=== PATIENT | female | born 1940 | race Caucasian/White ===

== ENCOUNTER 2017-12-01 18:29 | Emergency (ER) | payer MEDICARE, MEDICAID ==
[~2017-12-01] VITALS: Ht 175.3 cm; Wt 95.3 kg
--- OUTSIDE RECORDS SUMMARY | 2017-12-01 18:35 | XMS REPORT | CCD ---
Author Author Angelina Chun Organization Angelina Chun MD, [facility] Address [facility] [place] [address] Phone Care Team Providers Care Svp Programmatic Tv Name Role Phone PP Unavailable CCM Unavailable Summary Purpose Interface Exchange Insurance Providers Payer name Policy type / Coverage type Covered green party ID Effective Begin Date Effective End Date WPS Medicare Part B Medicare Part B [id number] 2017 Unknown [employer] Medicare Part B [id number] 2017 Unknown [facility] Medicare Part B [id number] 2017 Unknown Family history Brother Diagnosis Age At Onset Depression Unknown Alcoholism Unknown Hypertension Unknown Mother Diagnosis Age At Onset Arthritis Unknown Hyperlipidemia Unknown Depression Unknown Hypertension Unknown Father Diagnosis Age At Onset Hypertension Unknown Social History Social History Element Codes Description Effective Dates Marital status Unknown Izaiah 08/28/2017 Number of children Unknown 2 adopted 01/01/2017 Employment Unknown Retired 01/01/[address]: 649591927 Never smoker 01/01/[address]: 503803453 Never drinks alcohol 01/01/2017 Allergies, Adverse Reactions, Alerts Allergies, Adverse Reactions, Alerts data not found Past Medical History Illness Codes Condition Status Onset Date Resolved Date Alzheimer's disease with late onset ICD-9: 331.0 ICD-10: G30.1 Active 01/01/2017 Unknown Mixed hyperlipidemia ICD-9: 272.2 ICD-10: E78.2 Active 01/01/2017 Unknown Other allergic rhinitis ICD-9: 477.8 ICD-10: J30.89 Active 01/01/2017 Unknown Problems Condition Codes Effective Dates Condition Status Alzheimer's disease with late onset ICD-9: 331.0 ICD-10: G30.1 01/01/2017 Active Mixed hyperlipidemia ICD-9: 272.2 ICD-10: E78.2 01/01/2017 Active Other allergic rhinitis ICD-9: 477.8 ICD-10: J30.89 01/01/2017 Active Medications Medication Codes Instructions Start Date Stop Date Status Fill Instructions Depakote 250 mg tablet,delayed release RxNorm: 8333406 1 Tablet(s) PO QPM 11/06/2017 04/04/2018 Active simvastatin 20 mg tablet RxNorm: 877624 1 Tablet(s) PO daily 03/28/2018 Active cyanocobalamin (vit B-12) 1,000 mcg/mL injection solution RxNorm: 138241 1 Milliliter(s) Inj monthly 08/29/201708/23 Active vitamin G05-[id number] B1 100 mg-1 mg/mL intramuscular solution RxNorm: 753277 1 IM monthly 08/28/2017 08/29/2017 Inactive Depakote 250 mg tablet,delayed release RxNorm: 1355610 1 Tablet(s) PO QPM 06/04/2017 10/01/2017 Inactive memantine 10 mg tablet RxNorm: 309515 1 Tablet(s) PO BID 201604/26/2018 Active this replaces the 5mg dose simvastatin 20 mg tablet RxNorm: 172840 1 Tablet(s) PO daily 08/26/2017 Inactive Ativan 0.5 mg tablet RxNorm: 159735 1 Tablet(s) PO 45 minutes prior to MRI. May repeat x1 immediately before procedure if needed. 02/13/2017 No Stop Date Active donepezil 10 mg tablet RxNorm: 822368 1 Tablet(s) PO daily 12/26/2017 Active Depakote 250 mg tablet,delayed release RxNorm: 6298349 1 Tablet(s) PO QPM 01/01/2017 04/30/2017 Inactive memantine 5 mg tablet RxNorm: 348533 1 Tablet(s) PO BID 201605/01/2017 Inactive melatonin 3 mg tablet RxNorm: 471675 1 Tablet(s) PO QHS No Start Date Active Claritin 10 mg tablet RxNorm: 714322 1 Tablet(s) PO daily No Start Date Active memantine 5 mg tablet RxNorm: 529854 1 Tablet(s) PO BID No Start Date 12/31/2016 Inactive donepezil 5 mg tablet RxNorm: 318507 1 Tablet(s) PO daily No Start Date 12/31/2016 Inactive simvastatin 20 mg tablet RxNorm: 867695 1 Tablet(s) PO daily No Start Date 04/28/2017 Inactive cyanocobalamin (vit B-12) 1,000 mcg/mL injection solution RxNorm: 165871 1 Milliliter(s) Inj monthly No Start Date Inactive vitamin L29-bpzgunc B1 100 mg-1 mg/mL intramuscular solution RxNorm: 372887 1 IM monthly No Start Date 08/27/2017 Inactive Ativan 0.5 mg tablet RxNorm: 473833 1 Tablet(s) PO 45 minutes prior to MRI. May repeat x1 immediately before procedure if needed. No Start Date 02/12/2017 Inactive Medication Administered No Medication Administered data Immunizations No Immunization data Assessments Condition Codes Effective Dates Mixed hyperlipidemia ICD-10: E78.2 ICD-9: 272.2 08/28/2017 Alzheimer's disease with late onset ICD-10: G30.1 ICD-9: 331.0 08/28/2017 Other allergic rhinitis ICD-10: J30.89 ICD-9: 477.8 01/01/2017 Reason For Visit Reason For Visit Effective Dates Notes memory loss 08/28/2017 memory loss 05/02/2017 insomnia 02/05/2017 insomnia 01/01/2017 Results No Results data Review of Systems System Result Effective Dates Constitutional No recent illness 2016 Constitutional No chills 08/28/2017 Constitutional fatigue 08/28/2017 Constitutional No fever 08/28/2017 Constitutional No insomnia 08/28/2017 Constitutional malaise 08/28/2017 Eyes No vision change 08/28/2017 Ears/Nose/Throat/Neck No dizziness 2016 Ears/Nose/Throat/Neck No dysphagia 2016 Ears/Nose/Throat/Neck No headache 2016 Ears/Nose/Throat/Neck No hearing loss Ears/Nose/Throat/Neck No nasal allergies 08/28/2017 Ears/Nose/Throat/Neck No sore throat Cardiovascular No chest pain/pressure Cardiovascular dyspnea 08/28/2017 Cardiovascular No edema 08/28/2017 Cardiovascular exercise intolerance 08/28 Cardiovascular fatigue 08/28/2017 Respiratory No chest tightness 2016 Respiratory No cough 08/28/2017 Respiratory No dyspnea 08/28/2017 Respiratory No pedal edema 08/28/2017 Gastrointestinal No abdominal pain 2016 Gastrointestinal No constipation 2016 Gastrointestinal No diarrhea 08/28/2017 Gastrointestinal No gastroesophageal reflux 08/28/2017 Genitourinary/Nephrology No dysuria 08/28 Genitourinary/Nephrology No nocturia Genitourinary/Nephrology No urinary incontinence 08/28/2017 Musculoskeletal No stiffness 08/28/2017 Musculoskeletal No swelling 08/28/2017 Musculoskeletal No muscle weakness 2016 Musculoskeletal No myalgias 08/28/2017 Dermatologic No rash 08/28/2017 Dermatologic No sores 08/28/2017 Neurologic No dizziness 08/28/2017 Neurologic No headache 08/28/2017 Neurologic memory loss 08/28/2017 Neurologic No neck pain 08/28/2017 Neurologic No syncope 08/28/2017 Psychiatric No anxiety 08/28/2017 Psychiatric No depression 08/28/2017 Constitutional No recent illness 2016 Constitutional No chills 05/02/2017 Constitutional fatigue 05/02/2017 Constitutional No fever 05/02/2017 Constitutional No insomnia 05/02/2017 Constitutional malaise 05/02/2017 Eyes No vision change 05/02/2017 Ears/Nose/Throat/Neck No dizziness 2016 Ears/Nose/Throat/Neck No dysphagia 2016 Ears/Nose/Throat/Neck No headache 2016 Ears/Nose/Throat/Neck No hearing loss Ears/Nose/Throat/Neck No nasal allergies 05/02/2017 Ears/Nose/Throat/Neck No sore throat Cardiovascular No chest pain/pressure Cardiovascular dyspnea 05/02/2017 Cardiovascular No edema 05/02/2017 Cardiovascular exercise intolerance 05/02 Cardiovascular fatigue 05/02/2017 Respiratory No chest tightness 2016 Respiratory No cough 05/02/2017 Respiratory No dyspnea 05/02/2017 Respiratory No pedal edema 05/02/2017 Gastrointestinal No abdominal pain 2016 Gastrointestinal No constipation 2016 Gastrointestinal No diarrhea 05/02/2017 Gastrointestinal No gastroesophageal reflux 05/02/2017 Genitourinary/Nephrology No dysuria 05/02 Genitourinary/Nephrology No nocturia Genitourinary/Nephrology No urinary incontinence 05/02/2017 Musculoskeletal No stiffness 05/02/2017 Musculoskeletal No swelling 05/02/2017 Musculoskeletal No muscle weakness 2016 Musculoskeletal No myalgias 05/02/2017 Dermatologic No rash 05/02/2017 Dermatologic No sores 05/02/2017 Neurologic No dizziness 05/02/2017 Neurologic No headache 05/02/2017 Neurologic memory loss 05/02/2017 Neurologic No neck pain 05/02/2017 Neurologic No syncope 05/02/2017 Psychiatric No anxiety 05/02/2017 Psychiatric No depression 05/02/2017 Constitutional No recent illness 2016 Constitutional No chills 02/05/2017 Constitutional fatigue 02/05/2017 Constitutional No fever 02/05/2017 Constitutional No insomnia 02/05/2017 Constitutional malaise 02/05/2017 Eyes No vision change 02/05/2017 Ears/Nose/Throat/Neck No dizziness 2016 Ears/Nose/Throat/Neck No dysphagia 2016 Ears/Nose/Throat/Neck No headache 2016 Ears/Nose/Throat/Neck No hearing loss Ears/Nose/Throat/Neck No nasal allergies 02/05/2017 Ears/Nose/Throat/Neck No sore throat Cardiovascular No chest pain/pressure Cardiovascular dyspnea 02/05/2017 Cardiovascular No edema 02/05/2017 Cardiovascular exercise intolerance 02/05 Cardiovascular fatigue 02/05/2017 Respiratory No chest tightness 2016 Respiratory No cough 02/05/2017 Respiratory No dyspnea 02/05/2017 Respiratory No pedal edema 02/05/2017 Gastrointestinal No abdominal pain 2016 Gastrointestinal No constipation 2016 Gastrointestinal No diarrhea 02/05/2017 Gastrointestinal No gastroesophageal reflux 02/05/2017 Genitourinary/Nephrology No dysuria 02/05 Genitourinary/Nephrology No nocturia Genitourinary/Nephrology No urinary incontinence 02/05/2017 Musculoskeletal No stiffness 02/05/2017 Musculoskeletal No swelling 02/05/2017 Musculoskeletal No muscle weakness 2016 Musculoskeletal No myalgias 02/05/2017 Dermatologic No rash 02/05/2017 Dermatologic No sores 02/05/2017 Neurologic No dizziness 02/05/2017 Neurologic No headache 02/05/2017 Neurologic memory loss 02/05/2017 Neurologic No neck pain 02/05/2017 Neurologic No syncope 02/05/2017 Psychiatric No anxiety 02/05/2017 Psychiatric No depression 02/05/2017 Constitutional No recent illness 2016 Constitutional No chills 01/01/2017 Constitutional fatigue 01/01/2017 Constitutional No fever 01/01/2017 Constitutional No insomnia 01/01/2017 Constitutional malaise 01/01/2017 Eyes No vision change 01/01/2017 Ears/Nose/Throat/Neck No dizziness 2016 Ears/Nose/Throat/Neck No dysphagia 2016 Ears/Nose/Throat/Neck No headache 2016 Ears/Nose/Throat/Neck No hearing loss Ears/Nose/Throat/Neck No nasal allergies 01/01/2017 Ears/Nose/Throat/Neck No sore throat Cardiovascular No chest pain/pressure Cardiovascular dyspnea 01/01/2017 Cardiovascular No edema 01/01/2017 Cardiovascular exercise intolerance 01/01 Cardiovascular fatigue 01/01/2017 Respiratory No chest tightness 2016 Respiratory No cough 01/01/2017 Respiratory No dyspnea 01/01/2017 Respiratory No pedal edema 01/01/2017 Gastrointestinal No abdominal pain 2016 Gastrointestinal No constipation 2016 Gastrointestinal No diarrhea 01/01/2017 Gastrointestinal No gastroesophageal reflux 01/01/2017 Genitourinary/Nephrology No dysuria 01/01 Genitourinary/Nephrology No nocturia Genitourinary/Nephrology No urinary incontinence 01/01/2017 Musculoskeletal No stiffness 01/01/2017 Musculoskeletal No swelling 01/01/2017 Musculoskeletal No muscle weakness 2016 Musculoskeletal No myalgias 01/01/2017 Dermatologic No rash 01/01/2017 Dermatologic No sores 01/01/2017 Neurologic No dizziness 01/01/2017 Neurologic No headache 01/01/2017 Neurologic No neck pain 01/01/2017 Neurologic No syncope 01/01/2017 Psychiatric No anxiety 01/01/2017 Psychiatric No depression 01/01/2017 Neurologic memory loss 01/01/2017 Physical Exam Exam Name System Name Item Name Status Result Effective Dates Notes Full Exam - General 1994 Constitutional general appearance Development: well developed 08/28/2017 None Full Exam - General 1994 Constitutional general appearance Development: appears stated age 1108/28/2017 None Full Exam - General 1994 Constitutional general appearance Hygiene/Attention to Grooming: good hygiene 08/28/2017 None Full Exam - General 1994 Eyes conjunctiva /eyelids Overall: conjunctiva clear 08/28/2017 None Full Exam - General 1994 Eyes conjunctiva /eyelids Overall: cornea clear 08/28/2017 None Full Exam - General 1994 Eyes conjunctiva /eyelids Overall: eyelids normal 08/28/2017 None Full Exam - General 1994 Eyes pupils and irises Overall: pupils equal, round, reactive to light and accomodation 08/28/2017 None Full Exam - General 1994 Ears/Nose/Throat otoscopic exam Overall: external auditory canals clear 08/28/2017 None Full Exam - General 1994 Ears/Nose/Throat otoscopic exam Overall: tympanic membranes clear 08/28/2017 None Full Exam - General 1994 Ears/Nose/Throat lips/teeth/gingiva Overall: benign lips 08/28/2017 None Full Exam - General 1994 Ears/Nose/Throat lips/teeth/gingiva Overall: normal dentition 08/28/2017 None Full Exam - General 1994 Ears/Nose/Throat oral cavity/pharynx/larynx Overall: oral mucosa clear 08/28/2017 None Full Exam - General 1994 Ears/Nose/Throat oral cavity/pharynx/larynx Overall: oropharyngeal mucosa clear 08/28/2017 None Full Exam - General 1994 Ears/Nose/Throat oral cavity/pharynx/larynx Overall: hypopharynx benign 08/28/2017 None Full Exam - General 1994 Ears/Nose/Throat oral cavity/pharynx/larynx Overall: no masses 08/28/2017 None Full Exam - General 1994 Respiratory auscultation Overall: breath sounds clear bilaterally 08/28/2017 None Full Exam - General 1994 Respiratory respiratory effort/rhythm Overall: no retractions 08/28/2017 None Full Exam - General 1994 Respiratory respiratory effort/rhythm Overall: normal rate 08/28/2017 None Full Exam - General 1994 Cardiovascular extremities Overall: no clubbing 08/28/2017 None Full Exam - General 1994 Cardiovascular auscultation of heart Overall: regular rate 08/28/2017 None Full Exam - General 1994 Cardiovascular auscultation of heart Overall: normal heart sounds 08/28/2017 None Full Exam - General 1994 Abdomen abdominal exam Overall: no tenderness 08/28/2017 None Full Exam - General 1994 Abdomen abdominal exam Overall: normal bowel sounds 08/28/2017 None Full Exam - General 1994 Musculoskeletal spine, ribs and pelvis Overall: good posture 08/28/2017 None Full Exam - General 1994 Musculoskeletal head and neck Overall: head atraumatic 08/28/2017 None Full Exam - General 1994 Musculoskeletal head and neck Overall: cervical spine benign 08/28/2017 None Full Exam - General 1994 Psychiatric orientation/consciousness Oriented to person: yes 08/28/2017 None Full Exam - General 1994 Psychiatric orientation/consciousness Oriented to person: no 08/28/2017 None Full Exam - General 1994 Psychiatric orientation/consciousness Oriented to place: no 08/28/2017 None Full Exam - General 1994 Psychiatric orientation/consciousness Oriented to time: no 08/28/2017 None Full Exam - General 1994 Psychiatric behavior/psychomotor activity Behavior: agitation/restlessness 08/28/2017 None Full Exam - General 1994 Psychiatric mood and affect Overall: normal mood and affect 08/28/2017 None Full Exam - General 1994 Constitutional general appearance Development: well developed 05/02/2017 None Full Exam - General 1994 Constitutional general appearance Development: appears stated age 0705/02/2017 None Full Exam - General 1994 Constitutional general appearance Hygiene/Attention to Grooming: good hygiene 05/02/2017 None Full Exam - General 1994 Eyes conjunctiva /eyelids Overall: conjunctiva clear 05/02/2017 None Full Exam - General 1994 Eyes conjunctiva /eyelids Overall: cornea clear 05/02/2017 None Full Exam - General 1994 Eyes conjunctiva /eyelids Overall: eyelids normal 05/02/2017 None Full Exam - General 1994 Eyes pupils and irises Overall: pupils equal, round, reactive to light and accomodation 05/02/2017 None Full Exam - General 1994 Ears/Nose/Throat otoscopic exam Overall: external auditory canals clear 05/02/2017 None Full Exam - General 1994 Ears/Nose/Throat otoscopic exam Overall: tympanic membranes clear 05/02/2017 None Full Exam - General 1994 Ears/Nose/Throat lips/teeth/gingiva Overall: benign lips 05/02/2017 None Full Exam - General 1994 Ears/Nose/Throat lips/teeth/gingiva Overall: normal dentition 05/02/2017 None Full Exam - General 1994 Ears/Nose/Throat oral cavity/pharynx/larynx Overall: oral mucosa clear 05/02/2017 None Full Exam - General 1994 Ears/Nose/Throat oral cavity/pharynx/larynx Overall: oropharyngeal mucosa clear 05/02/2017 None Full Exam - General 1994 Ears/Nose/Throat oral cavity/pharynx/larynx Overall: hypopharynx benign 05/02/2017 None Full Exam - General 1994 Ears/Nose/Throat oral cavity/pharynx/larynx Overall: no masses 05/02/2017 None Full Exam - General 1994 Respiratory auscultation Overall: breath sounds clear bilaterally 05/02/2017 None Full Exam - General 1994 Respiratory respiratory effort/rhythm Overall: no retractions 05/02/2017 None Full Exam - General 1994 Respiratory respiratory effort/rhythm Overall: normal rate 05/02/2017 None Full Exam - General 1994 Cardiovascular extremities Overall: no clubbing 05/02/2017 None Full Exam - General 1994 Cardiovascular auscultation of heart Overall: regular rate 05/02/2017 None Full Exam - General 1994 Cardiovascular auscultation of heart Overall: normal heart sounds 05/02/2017 None Full Exam - General 1994 Abdomen abdominal exam Overall: no tenderness 05/02/2017 None Full Exam - General 1994 Abdomen abdominal exam Overall: normal bowel sounds 05/02/2017 None Full Exam - General 1994 Musculoskeletal spine, ribs and pelvis Overall: good posture 05/02/2017 None Full Exam - General 1994 Musculoskeletal head and neck Overall: head atraumatic 05/02/2017 None Full Exam - General 1994 Musculoskeletal head and neck Overall: cervical spine benign 05/02/2017 None Full Exam - General 1994 Psychiatric orientation/consciousness Oriented to person: yes 05/02/2017 None Full Exam - General 1994 Psychiatric orientation/consciousness Oriented to person: no 05/02/2017 None Full Exam - General 1994 Psychiatric orientation/consciousness Oriented to place: no 05/02/2017 None Full Exam - General 1994 Psychiatric orientation/consciousness Oriented to time: no 05/02/2017 None Full Exam - General 1994 Psychiatric behavior/psychomotor activity Behavior: agitation/restlessness 05/02/2017 None Full Exam - General 1994 Psychiatric mood and affect Overall: normal mood and affect 05/02/2017 None Full Exam - General 1994 Constitutional general appearance Development: well developed 02/05/2017 None Full Exam - General 1994 Constitutional general appearance Development: appears stated age 0402/05/2017 None Full Exam - General 1994 Constitutional general appearance Hygiene/Attention to Grooming: good hygiene 02/05/2017 None Full Exam - General 1994 Eyes conjunctiva /eyelids Overall: conjunctiva clear 02/05/2017 None Full Exam - General 1994 Eyes conjunctiva /eyelids Overall: cornea clear 02/05/2017 None Full Exam - General 1994 Eyes conjunctiva /eyelids Overall: eyelids normal 02/05/2017 None Full Exam - General 1994 Eyes pupils and irises Overall: pupils equal, round, reactive to light and accomodation 02/05/2017 None Full Exam - General 1994 Ears/Nose/Throat otoscopic exam Overall: external auditory canals clear 02/05/2017 None Full Exam - General 1994 Ears/Nose/Throat otoscopic exam Overall: tympanic membranes clear 02/05/2017 None Full Exam - General 1994 Ears/Nose/Throat lips/teeth/gingiva Overall: benign lips 02/05/2017 None Full Exam - General 1994 Ears/Nose/Throat lips/teeth/gingiva Overall: normal dentition 02/05/2017 None Full Exam - General 1994 Ears/Nose/Throat oral cavity/pharynx/larynx Overall: oral mucosa clear 02/05/2017 None Full Exam - General 1994 Ears/Nose/Throat oral cavity/pharynx/larynx Overall: oropharyngeal mucosa clear 02/05/2017 None Full Exam - General 1994 Ears/Nose/Throat oral cavity/pharynx/larynx Overall: hypopharynx benign 02/05/2017 None Full Exam - General 1994 Ears/Nose/Throat oral cavity/pharynx/larynx Overall: no masses 02/05/2017 None Full Exam - General 1994 Respiratory auscultation Overall: breath sounds clear bilaterally 02/05/2017 None Full Exam - General 1994 Respiratory respiratory effort/rhythm Overall: no retractions 02/05/2017 None Full Exam - General 1994 Respiratory respiratory effort/rhythm Overall: normal rate 02/05/2017 None Full Exam - General 1994 Cardiovascular extremities Overall: no clubbing 02/05/2017 None Full Exam - General 1994 Cardiovascular auscultation of heart Overall: regular rate 02/05/2017 None Full Exam - General 1994 Cardiovascular auscultation of heart Overall: normal heart sounds 02/05/2017 None Full Exam - General 1994 Abdomen abdominal exam Overall: no tenderness 02/05/2017 None Full Exam - General 1994 Abdomen abdominal exam Overall: normal bowel sounds 02/05/2017 None Full Exam - General 1994 Musculoskeletal spine, ribs and pelvis Overall: good posture 02/05/2017 None Full Exam - General 1994 Musculoskeletal head and neck Overall: head atraumatic 02/05/2017 None Full Exam - General 1994 Musculoskeletal head and neck Overall: cervical spine benign 02/05/2017 None Full Exam - General 1994 Psychiatric orientation/consciousness Oriented to person: yes 02/05/2017 None Full Exam - General 1994 Psychiatric orientation/consciousness Oriented to person: no 02/05/2017 None Full Exam - General 1994 Psychiatric orientation/consciousness Oriented to place: no 02/05/2017 None Full Exam - General 1994 Psychiatric orientation/consciousness Oriented to time: no 02/05/2017 None Full Exam - General 1994 Psychiatric behavior/psychomotor activity Behavior: agitation/restlessness 02/05/2017 None Full Exam - General 1994 Psychiatric mood and affect Overall: normal mood and affect 02/05/2017 None Full Exam - General 1994 Constitutional general appearance Development: well developed 01/01/2017 None Full Exam - General 1994 Constitutional general appearance Development: appears stated age 0301/01/2017 None Full Exam - General 1994 Constitutional general appearance Hygiene/Attention to Grooming: good hygiene 01/01/2017 None Full Exam - General 1994 Eyes conjunctiva /eyelids Overall: conjunctiva clear 01/01/2017 None Full Exam - General 1994 Eyes conjunctiva /eyelids Overall: cornea clear 01/01/2017 None Full Exam - General 1994 Eyes conjunctiva /eyelids Overall: eyelids normal 01/01/2017 None Full Exam - General 1994 Eyes pupils and irises Overall: pupils equal, round, reactive to light and accomodation 01/01/2017 None Full Exam - General 1994 Ears/Nose/Throat otoscopic exam Overall: external auditory canals clear 01/01/2017 None Full Exam - General 1994 Ears/Nose/Throat otoscopic exam Overall: tympanic membranes clear 01/01/2017 None Full Exam - General 1994 Ears/Nose/Throat lips/teeth/gingiva Overall: benign lips 01/01/2017 None Full Exam - General 1994 Ears/Nose/Throat lips/teeth/gingiva Overall: normal dentition 01/01/2017 None Full Exam - General 1994 Ears/Nose/Throat oral cavity/pharynx/larynx Overall: oral mucosa clear 01/01/2017 None Full Exam - General 1994 Ears/Nose/Throat oral cavity/pharynx/larynx Overall: oropharyngeal mucosa clear 01/01/2017 None Full Exam - General 1994 Ears/Nose/Throat oral cavity/pharynx/larynx Overall: hypopharynx benign 01/01/2017 None Full Exam - General 1994 Ears/Nose/Throat oral cavity/pharynx/larynx Overall: no masses 01/01/2017 None Full Exam - General 1994 Respiratory auscultation Overall: breath sounds clear bilaterally 01/01/2017 None Full Exam - General 1994 Respiratory respiratory effort/rhythm Overall: no retractions 01/01/2017 None Full Exam - General 1994 Respiratory respiratory effort/rhythm Overall: normal rate 01/01/2017 None Full Exam - General 1994 Cardiovascular extremities Overall: no clubbing 01/01/2017 None Full Exam - General 1994 Cardiovascular auscultation of heart Overall: regular rate 01/01/2017 None Full Exam - General 1994 Cardiovascular auscultation of heart Overall: normal heart sounds 01/01/2017 None Full Exam - General 1994 Abdomen abdominal exam Overall: no tenderness 01/01/2017 None Full Exam - General 1994 Abdomen abdominal exam Overall: normal bowel sounds 01/01/2017 None Full Exam - General 1994 Lymphatic neck nodes Overall: anterior cervical chain benign 01/01/2017 None Full Exam - General 1994 Lymphatic neck nodes Overall: posterior cervical chain benign 01/01/2017 None Full Exam - General 1994 Musculoskeletal spine, ribs and pelvis Overall: spine benign 01/01/2017 None Full Exam - General 1994 Musculoskeletal spine, ribs and pelvis Overall: sacroiliac joint benign 01/01/2017 None Full Exam - General 1994 Musculoskeletal spine, ribs and pelvis Overall: good posture 01/01/2017 None Full Exam - General 1994 Musculoskeletal head and neck Overall: head atraumatic 01/01/2017 None Full Exam - General 1994 Musculoskeletal head and neck Overall: cervical spine benign 01/01/2017 None Full Exam - General 1994 Integument inspection of skin Overall: few scattered moles, no gross abnormalities 01/01/2017 None Full Exam - General 1994 Neurologic deep tendon reflexes Overall: deep tendon reflexes intact 01/01/2017 None Full Exam - General 1994 Neurologic cranial nerves Overall: crainial nerves 2 - 12 grossly intact 01/01/2017 None Full Exam - General 1994 Psychiatric mood and affect Overall: normal mood and affect 01/01/2017 None Full Exam - General 1994 Psychiatric orientation/consciousness Oriented to person: no 01/01/2017 None Full Exam - General 1994 Psychiatric orientation/consciousness Oriented to person: yes 01/01/2017 None Full Exam - General 1994 Psychiatric orientation/consciousness Oriented to place: no 01/01/2017 None Full Exam - General 1994 Psychiatric orientation/consciousness Oriented to time: no 01/01/2017 None Full Exam - General 1994 Psychiatric behavior/psychomotor activity Behavior: agitation/restlessness 01/01/2017 None Procedures Procedure Codes Date BIOPSY OF THYROID CPT- 4: 22816 Unknown BX BREAST PERCUT W/O IMAGE CPT-4: 20311 Unknown Vital Signs Date Vital 08/28/2017 Blood Pressure 1: 122/78 Code : 8480-6 BMI: 31.6 Code : 05511-9 Heart Rate 1 : 106 bpm Height: 5'8" SpO2: 98% Weight: 211 lbs 05/02/2017 Blood Pressure 1: 140/80 Code : 8480-6 BMI: 30.7 Code : 39512-5 Heart Rate 1 : 104 bpm Height: 5'8" SpO2: 97% Weight: 205 lbs 02/05/2017 Blood Pressure 1: 142/70 Code : 8480-6 BMI: 29.1 Code : 31283-2 Heart Rate 1 : 103 bpm Height: 5'8" SpO2: 96% Weight: 194 lbs 01/01/2017 Blood Pressure 1: 120/68 Code : 8480-6 BMI: 29.4 Code : 87553-8 Heart Rate 1 : 93 bpm Height: 5'8" SpO2: 96% Weight: 196 lbs Functional Status No Functional Status data History of Present Illness Symptom Name Status Result Effective Date Notes memory loss Onset and Resolution ongoing 08/28/2017 None memory loss Limitation on Activities moderately limits activities 08/28/2017 None memory loss Onset and Resolution gradual in onset 08/28/2017 None memory loss Onset of Symptom years ago 08/28/2017 None hyperlipidemia Onset and Resolution gradual in onset 08/28/2017 None hyperlipidemia Onset and Resolution ongoing 08/28/2017 None hyperlipidemia Onset of Symptom during adulthood 08/28/2017 None hyperlipidemia Alleviating Factors medication 08/28/2017 None hyperlipidemia Exacerbating Factors diet 08/28/2017 None hyperlipidemia Quality increased LDL 08/28/2017 None hyperlipidemia Significant Medications statin 08/28/2017 None abdominal pain Location in the LLQ 08/28/2017 None abdominal pain Location in the RLQ 08/28/2017 None abdominal pain Quality intermittent 08/28/2017 None abdominal pain Onset and Resolution ongoing 08/28/2017 None abdominal pain Onset of Symptom 2 months ago 08/28/2017 None abdominal pain Pertinent Findings Denies nausea 08/28/2017 None insomnia Quality intermittent 08/28/2017 None insomnia Quality disrupted sleep 08/28/2017 None insomnia Quality early awakening 08/28/2017 None insomnia Onset and Resolution ongoing 08/28/2017 None insomnia Onset of Symptom ~3 months ago 08/28/2017 None abdominal pain Triggers no known associated factors 08/28/2017 None memory loss Onset and Resolution ongoing 05/02/2017 None memory loss Onset of Symptom _ years ago 05/02/2017 None memory loss Limitation on Activities moderately limits activities 05/02/2017 None anxiety Quality agitation 05/02/2017 None anxiety Quality intermittent 05/02/2017 None anxiety Quality worsening 05/02/2017 None anxiety Onset and Resolution ongoing 05/02/2017 None anxiety Onset of Symptom during adulthood 05/02/2017 None anxiety Pertinent Findings Denies dyspnea 05/02/2017 None anxiety Pertinent Findings Denies palpitations 05/02/2017 None insomnia Quality difficulty falling asleep 02/05/2017 None insomnia Quality disrupted sleep 02/05/2017 None insomnia Onset and Resolution ongoing 02/05/2017 None memory loss Onset and Resolution ongoing 02/05/2017 None memory loss Onset of Symptom _ years ago 02/05/2017 None memory loss Limitation on Activities moderately limits activities 02/05/2017 None anxiety Quality agitation 02/05/2017 None anxiety Quality intermittent 02/05/2017 None anxiety Quality worsening 02/05/2017 None anxiety Onset and Resolution ongoing 02/05/2017 None anxiety Onset of Symptom during adulthood 02/05/2017 None dizziness Onset and Resolution sudden in onset 02/05/2017 None dizziness Quality imbalance 02/05/2017 None dizziness Pertinent Findings blurred vision 02/05/2017 None dizziness Pertinent Findings Denies confusion 02/05/2017 None dizziness Pertinent Findings imbalance 02/05/2017 None dizziness Pertinent Findings Denies lightheadedness 02/05/2017 None insomnia Quality difficulty falling asleep 01/01/2017 None insomnia Quality disrupted sleep 01/01/2017 None insomnia Onset and Resolution ongoing 01/01/2017 None memory loss Onset and Resolution ongoing 01/01/2017 None memory loss Onset of Symptom _ years ago 01/01/2017 None memory loss Limitation on Activities moderately limits activities 01/01/2017 None anxiety Quality agitation 01/01/2017 None anxiety Quality intermittent 01/01/2017 None anxiety Quality worsening 01/01/2017 None anxiety Onset and Resolution ongoing 01/01/2017 None anxiety Onset of Symptom during adulthood 01/01/2017 None Advance Directives Advance Directives Present Encounters Encounter Performer Location Codes Date [id number]) [id number] EST. PATIENT, LEVEL IV Diagnosis: Mixed hyperlipidemia[ICD10: E78.2] Diagnosis: Alzheimer's disease with late onset[ICD10: G30.1] Angelina Chun MD, [facility] CPT-4: 58089 08/28/2017 [id number]) [id number] EST. PATIENT, LEVEL IV Diagnosis: Alzheimer's disease with late onset[ICD10: G30.1] Diagnosis: Mixed hyperlipidemia[ICD10: E78.2] [facility] CPT-4: 86195 05/02/2017 [id number]) [id number] EST. PATIENT, LEVEL IV Diagnosis: Mixed hyperlipidemia[ICD10: E78.2] Diagnosis: Alzheimer's disease with late onset[ICD10: G30.1] [facility] CPT-4: 53650 02/05/2017 ([id number]) OFFICE/OUTPATIENT VISIT NEW Diagnosis: Alzheimer's disease with late onset[ICD10: G30.1] Diagnosis: Mixed hyperlipidemia[ICD10: E78.2] Diagnosis: Other allergic rhinitis[ICD10: J30.89] [facility] CPT-4: 99721 01/01/2017 Plan of Care Planned Activity Notes Codes Status Date Appointment: Shiloh Jackson [facility]el[facility] [place] (15 min) Moderate 10/28/2017 Appointment: Angelina Chun WPtel[facility] [place] (15 min) Moderate 08/28/2017 Patient Education: Patient Medication Summary Completed 08/28/2017 Patient Education: Obesity Completed 08/28/2017 Appointment: Angelina Chun WPtel: [facility] [place] (15 min) Moderate 05/02/2017 Patient Education: Patient Medication Summary Completed 05/02/2017 Patient Education: Obesity Completed 05/02/2017 Appointment: Angelina Chun WPtel: [facility] [place] (30 min) Complex 02/05/2017 Patient Education: Patient Medication Summary Completed 02/05/2017 Care Plan: MRI BRAIN STEM W/O DYE Pending 02/05/2017 Appointment: [phone] [facility] New Patient 01/01/2017 Patient Education: Patient Medication Summary Completed 01/01/2017 Appointment: [phone] [facility] New Patient 12/27/2016 Instructions No Instructions
[2017-12-01] MEDS ORDERED: SIMV20TA3 (19:52)
[2017-12-01] MEDS ORDERED: DIVA250T4 (19:52)
[2017-12-01] MEDS ORDERED: ALPR0.254 (19:52)
[2017-12-01 19:53] LABS: BILIRUBIN,URINE NEGATIVE (NEGATIVE); CLARITY,URINE CLEAR; COLOR,URINE YELLOW; GLUCOSE, URINE (UA) NEGATIVE (NEGATIVE); KETONES,URINE NEGATIVE (NEGATIVE); LEUKOCYTE ESTERASE ,URINE 1+ (NEGATIVE); NITRITE,URINE NEGATIVE (NEGATIVE); PH,URINE 5 (5-9); PROTEIN,URINE NEGATIVE (NEGATIVE); UROBILINOGEN,URINE NORMAL (NORMAL)
[2017-12-01] MEDS ORDERED: DONE10TA41 (19:53)
[2017-12-01] MEDS ORDERED: MEMA10TA22 (19:53)
[2017-12-01 20:00] LABS: SQUAMOUS EPITHELIAL CELL,UR 0-2 /HPF; WBC,URINE 0-2 /HPF
[2017-12-01 20:57] LABS: BASOPHILS # (AUTO) 0.1 10^3/uL (0.0-0.1); BASOPHILS % (AUTO) 0 % (0-10); EOSINOPHILS # (AUTO) 0.5 10^3/uL (0.0-0.3); EOSINOPHILS % (AUTO) 4 % (0-10); HEMATOCRIT 34 % (35-52); HEMOGLOBIN 10.6 G/DL (11.5-16.0); LYMPHOCYTES # (AUTO) 3.5 X 10^3 (1.0-4.0); LYMPHOCYTES % (AUTO) 28 % (12-44); MEAN CORPUSCULAR HEMOGLOBIN 23 PG (25-34); MEAN CORPUSCULAR HGB CONC 31 G/DL (32-36); MEAN CORPUSCULAR VOLUME 75 FL (80-99); MEAN PLATELET VOLUME 9.8 FL (7.4-10.4); MONOCYTES # (AUTO) 1.2 X 10^3 (0.0-1.0); MONOCYTES % (AUTO) 10 % (0-12); NEUTROPHILS # (AUTO) 7.1 X 10^3 (1.8-7.8); NEUTROPHILS % (AUTO) 58 % (42-75); PLATELET COUNT 347 10^3/uL (130-400); RED BLOOD COUNT 4.55 10^6/uL (4.35-5.85); RED CELL DISTRIBUTION WIDTH 17.7 % (10.0-14.5); WHITE BLOOD COUNT 12.3 10^3/uL (4.3-11.0)
--- NOTE | 2017-12-01 20:59 | ED Neurological Problem ---
General Chief Complaint: Altered Mental Status Stated Complaint: AMS Nursing Triage Note: reports patient has dementia and has been getting worse since august but woke up last night at 2300 and was really bad and has continued today. Nursing Sepsis Screen: No Definite Risk Source: patient Exam Limitations: no limitations History of Present Illness Date Seen by Provider: Dec 01, 2017 Time Seen by Provider: 20:30 Initial Comments Patient presents to the ER with her daughter and . She lives at home with her . She has a history of dementia being followed by her primary care physician Dr. Chun. The daughter says yesterday evening around 11:00 at night the patient was just a little more confused than normal and did not want to go to sleep and this concerned them that maybe something was going on. She has no focal complaints. She denies dysuria, discharge, fever, vomiting, nausea, pain anywhere, shortness of breath, cough, runny nose, ear pressure or drainage, rash. At baseline the patient is able to feed herself and go to the bathroom but needs help with bathing, all IADLs. She has not had any recent falls nor she had her head struck, syncope nor presyncope. Patient had an MRI a few months ago when they were working of her dementia. The daughter says if we don't find anything infectious going on she would at least like something for sleep. She was started on melatonin recently by the primary care physician but they don't feel that it has helped. She denies any mood issues, tearfulness, loss of interest in hobbies, feeling low or low energy. Allergies and Home Medications Allergies Coded Allergies: Penicillins (Verified Allergy, Unknown, 12/01/17) Home Medications Alprazolam 0.25 Mg Tablet, (Reported) Divalproex Sodium 250 Mg Tablet., (Reported) Donepezil HCl 10 Mg Tablet, (Reported) Memantine HCl 10 Mg Tablet, (Reported) Simvastatin 20 Mg Tablet, (Reported) Constitutional: see HPI (farmer negative review of systems) Past Smilznq-Linjwz-Qqiczt Hx Patient Social History Alcohol Use: Denies Use Recreational Drug Use: No Recent Foreign Travel: No Contact w/Someone Who Travel: No Recent Infectious Disease Expo: No Surgeries History of Surgeries: Yes Surgeries: Breast Respiratory History of Respiratory Disorde: No Cardiovascular History of Cardiac Disorders: Yes Cardiac Disorders: High Cholesterol Neurological History of Neurological Disord: Yes (dementia) Gastrointestinal History of Gastrointestinal Di: No Musculoskeletal History of Musculoskeletal Dis: No Endocrine History of Endocrine Disorders: No HEENT History of HEENT Disorders: No Cancer History of Cancer: No Psychosocial History of Psychiatric Problem: No Physical Exam Vital Signs Vital Signs - First Documented 12/01/17 19:42 Temp 98.2 Pulse 109 Resp 18 B/P (MAP) 124/69 (87) Pulse Ox 97 Capillary Refill : Less Than 3 Seconds General Appearance: WD/WN, no apparent distress HEENT: PERRL/EOMI, normal ENT inspection, TMs normal, pharynx normal, other ( edontulous) Neck: non-tender, supple, normal inspection Respiratory: chest non-tender, lungs clear, normal breath sounds, no respiratory distress, no accessory muscle use Cardiovascular: normal peripheral pulses, regular rate, rhythm, systolic murmur (grade 2) Peripheral Pulses: 2+ Dorsalis Pedis (R), 2+ Left Dors-Pedis (L), 2+ Radial Pulses (R), 2+ Radial Pulses (L) Gastrointestinal: normal bowel sounds, non tender, soft, no organomegaly Back: normal inspection, no CVA tenderness, no vertebral tenderness Extremities: normal range of motion, non-tender, normal inspection, normal capillary refill Neurologic/Psychiatric: dry pan charger II-XII nml as tested, no motor/sensory deficits, alert, normal mood/affect, other (oriented to self only) Crainal Nerves: normal hearing, normal speech, PERRL, No abnormal speech, No facial asymmetry, No facial droop Coordination/Gait: normal finger to nose, normal gait, negative Romberg's sign Motor/Sensory: no motor deficit, no sensory deficit, no pronator drift, other ( negative for any cerebellar deficits.) Skin: normal color, warm/dry Lymphatic: no adenopathy Progress/Results/Core Measures Results/Orders Lab Results Laboratory Tests Test 12/01/17 19:45 12/01/17 20:48 Range/Units Urine Color YELLOW Urine Clarity CLEAR Urine pH 5 5-9 Urine Specific Joiner 1.020 1.016-1.022 Urine Protein NEGATIVE NEGATIVE Urine Glucose (UA) NEGATIVE NEGATIVE Urine Ketones NEGATIVE NEGATIVE Urine Nitrite NEGATIVE NEGATIVE Urine Bilirubin NEGATIVE NEGATIVE Urine Urobilinogen NORMAL NORMAL MG/DL Urine Leukocyte Esterase 1+ H NEGATIVE Urine RBC (Auto) NEGATIVE NEGATIVE Urine RBC NONE /HPF Urine WBC 0-2 /HPF Urine Squamous Epithelial Cells 0-2 /HPF Urine Crystals NONE /LPF Urine Bacteria NONE /HPF Urine Casts NONE /LPF Urine Mucus SMALL H /LPF Urine Culture Indicated NO White Blood Count 12.3 H 4.3-11.0 10^3/uL Red Blood Count 4.55 4.35-5.85 10^6/uL Hemoglobin 10.6 L 11.5-16.0 G/DL Hematocrit 34 L 35-52 % Mean Corpuscular Volume 75 L 80-99 FL Mean Corpuscular Hemoglobin 23 L 25-34 PG Mean Corpuscular Hemoglobin Concent 31 L 32-36 G/DL Red Cell Distribution Width 17.7 H 10.0-14.5 % Platelet Count 347 130-400 10^3/uL Mean Platelet Volume 9.8 7.4-10.4 FL Neutrophils (%) (Auto) 58 42-75 % Lymphocytes (%) (Auto) 28 12-44 % Monocytes (%) (Auto) 10 0-12 % Eosinophils (%) (Auto) 4 0-10 % Basophils (%) (Auto) 0 0-10 % Neutrophils # (Auto) 7.1 1.8-7.8 X 10^3 Lymphocytes # (Auto) 3.5 1.0-4.0 X 10^3 Monocytes # (Auto) 1.2 H 0.0-1.0 X 10^3 Eosinophils # (Auto) 0.5 H 0.0-0.3 10^3/uL Basophils # (Auto) 0.1 0.0-0.1 10^3/uL Sodium Level 141 135-145 MMOL/L Potassium Level 3.6 3.6-5.0 MMOL/L Chloride Level 106 98-107 MMOL/L Carbon Dioxide Level 20 L 21-32 MMOL/L Anion Gap 15 H 5-14 MMOL/L Blood Urea Nitrogen 14 7-18 MG/DL Creatinine 1.17 0.60-1.30 MG/DL Estimat Glomerular Filtration Rate 45 BUN/Creatinine Ratio 12 Glucose Level 121 H 70-105 MG/DL Calcium Level 9.1 8.5-10.1 MG/DL Total Bilirubin 0.4 0.1-1.0 MG/DL Aspartate Amino Transf (AST/SGOT) 23 5-34 U/L Alanine Aminotransferase (ALT/SGPT) 20 0-55 U/L Alkaline Phosphatase 94 40-136 U/L Total Protein 6.8 6.4-8.2 GM/DL Albumin 4.0 3.2-4.5 GM/DL My Orders Orders - MADISON HERNANDEZ Ua Culture If Indicated (12/01/17 19:29) Cbc With Automated Diff (12/01/17 20:37) Comprehensive Metabolic Panel (12/01/17 20:37) Chest Pa/Lat (2 View) (12/01/17 20:37) Vital Signs/I&O Vital Sign - Last 12Hours 12/01/17 19:42 Temp 98.2 Pulse 109 Resp 18 B/P (MAP) 124/69 (87) Pulse Ox 97 Blood Pressure Mean: 87 Progress Note : Time: 21:01 Progress Note No falls and the patient is neurologically intact. Deep tendon reflexes in the patellar were difficult to obtain but symmetrical. There is no reason to image her head at this time. Patient's daughter is describing what may be delirium on dementia versus just worsening dementia with insomnia. We'll check a chest x-ray , urine and blood and if we don't see any evidence of infection and otherwise normal exam would let her go home and follow up outpatient. We can give her something for her insomnia however such as trazodone. 2150: Other than a very mild white count is no evidence of infection or other issue on lab or x-ray. Her urine is clear. I will suggest that they return to care if they have new or worsening symptoms otherwise plan on following up with the primary care physician later this week. Diagnostic Imaging Diagonstic Imaging: Xray Plain Films/CT/US/NM/MRI: chest (2v) Comments No acute cardiopulmonary processes noted. [facility] [place], [place] NAME: ELIEZER HICKS [facility] REC#: [id number] PT STATUS: REG ER : 1940 PHYSICIAN: MADISON HERNANDEZ MD ADMIT DATE: 12/01/17/ER Draft Date of Exam:12/01/17 CHEST PA/LAT (2 VIEW) INDICATION: Increasing confusion, history of Alzheimer's disease. TECHNIQUE: Two view chest 9:13 PM CORRELATION STUDY: None FINDINGS: The heart size, mediastinal configuration and pulmonary vasculature are within normal limits. Mildly prominent interstitial markings may be reflective of chronic changes of the lung parenchyma. No infiltrate. Calcification of the left lung base. Accentuated thoracic kyphotic curvature with degenerative changes of the thoracic spine. Mild biapical pleural thickening. IMPRESSION: 1. Chronic changes of the lung parenchyma. Negative for acute cardiopulmonary abnormality. Dictated on workstation # [id number] Dict: 12/01/172101 Trans: 12/01/172114 [facility] [id number] Interpreted by: JOSEFINA KRAMER DO Electronically signed by: Reviewed: Reviewed by Me Departure Impression Impression: Primary Impression: Insomnia Qualified Codes: G47.00 - Insomnia, unspecified Additional Impression: Dementia Qualified Codes: F03.90 - Unspecified dementia without behavioral disturbance Disposition: 01 HOME, SELF-CARE Condition: Stable Departure-Patient Inst. Decision time for Depature: 21:57 Referrals: AUSTEN CHUN MD (PCP/Family) Primary Care Physician Patient Instructions: Insomnia (DC), Tips for Getting Better Sleep Add. Discharge Instructions: You may try a second dose of the melatonin tonight. If this is not helping you may also use a single tablet of Benadryl once. Please talk with your primary care physician for other measures to help with sleep. Plan on following up with Dr. Chun this week. If she starts having other symptoms such as nausea vomiting fever or diarrhea etc. please return to the ER or the primary care physician for further evaluation and management sooner. Keep the lights down sounds down and you can use ceiling fans or floor fan's to help promote a restful environment. All discharge instructions reviewed with patient and/or family. Voiced understanding. Copy Copies To 1: AUSTEN CHUN MD, TITUS J Dec 01, 2017 20:59
--- NOTE | 2017-12-01 21:15 | Diagnostic Imaging Report ---
INDICATION: Increasing confusion, history of Alzheimer's disease. TECHNIQUE: Two view chest 9:13 PM CORRELATION STUDY: None FINDINGS: The heart size, mediastinal configuration and pulmonary vasculature are within normal limits. Mildly prominent interstitial markings may be reflective of chronic changes of the lung parenchyma. No infiltrate. Calcification of the left lung base. Accentuated thoracic kyphotic curvature with degenerative changes of the thoracic spine. Mild biapical pleural thickening. IMPRESSION: 1. Chronic changes of the lung parenchyma. Negative for acute cardiopulmonary abnormality. Dictated by: Dictated on workstation # [id number]
[2017-12-01 21:41] LABS: BILIRUBIN,TOTAL 0.4 MG/DL (0.1-1.0); CALCIUM 9.1 MG/DL (8.5-10.1); CREATININE SERUM 1.17 MG/DL (0.60-1.30); POTASSIUM 3.6 MMOL/L (3.6-5.0); TOTAL PROTEIN 6.8 GM/DL (6.4-8.2)
[2017-12-01 22:02] VITALS: BP 124/69
== END 2017-12-01 22:09 | disposition home or self-care (01) ==
LOC: EDUNIT# 18:29 → ER 18:31
DX: G47.00 Insomnia, unspecified (principal); F03.90 Unspecified dementia, unspecified severity, without behavioral disturbance, psychotic disturbance, mood disturbance, and anxiety; E78.00 Pure hypercholesterolemia, unspecified; Z88.0 Allergy status to penicillin
CPT/HCPCS: 36415; 71046; 80053; 81000; 85025; 99283

== ENCOUNTER 2020-06-10 16:16 | Emergency (ER) | payer MEDICARE, MEDICAID ==
[~2020-06-10] VITALS: Ht 176 cm; Wt 90.7 kg
[~2020-06-10 16:16] MED LIST: ALPR0.254; DIVA-74; DONE10TA41; MEMA10TA57; SIMV20TA26
--- NOTE | 2020-06-10 16:50 | ED Lower Extremity ---
General Chief Complaint: Lower Extremity Stated Complaint: SWELLING OF LEGS Nursing Triage Note: HALFWAY STATES PATIENT LEG WITH PITTING EDEMA NOTED IN ANKLE, NOW PITTING EDEMA NOTED TO GROIN CAMI. HALFWAY STATES 7 LB WEIGHT GAIN IN FIVE DAYS Nursing Sepsis Screen: No Definite Risk Source: patient Exam Limitations: no limitations History of Present Illness Date Seen by Provider: Jun 10, 2020 Time Seen by Provider: 16:49 Initial Comments To ER with bilateral leg edema that is getting progressively closer to her waist. She's also had a 7 pound weight gain in 5 days. Onset: just prior to arrival Severity: moderate Pain/Injury Location: bilateral leg Allergies and Home Medications Allergies Coded Allergies: Penicillins (Verified Allergy, Unknown, 12/01/17) Patient Home Medication List Home Medication List Reviewed: Yes (I) Review of Systems Constitutional: see HPI EENTM: see HPI Respiratory: no symptoms reported Cardiovascular: no symptoms reported Genitourinary: no symptoms reported Musculoskeletal: see HPI Skin: no symptoms reported Psychiatric/Neurological: No Symptoms Reported Past Nrjcslc-Poqtru-Gxhxfn Hx Patient Social History Recent Foreign Travel: No Contact w/Someone Who Travel: No Recent Infectious Disease Expo: No Past Medical History Surgeries: Yes Breast Respiratory: No Cardiac: Yes High Cholesterol Neurological: Yes (dementia) Gastrointestinal: No Musculoskeletal: No Endocrine: No HEENT: No Cancer: No Psychosocial: No Physical Exam Vital Signs Vital Signs - First Documented 06/10/20 16:37 Temp 36.7 Pulse 104 Resp 18 B/P (MAP) 112/78 (89) Pulse Ox 96 O2 Delivery Room Air Capillary Refill : Less Than 3 Seconds Height, Weight, BMI Height: 5'9.00" Weight: 210lbs. oz. 95.239548zk; 29.00 BMI Method:Stated General Appearance: WD/WN, no apparent distress Respiratory: no respiratory distress, no accessory muscle use Hips: bilateral hip non-tender, bilateral hip normal inspection, bilateral hip normal range of motion Legs: bilateral leg swelling (2+ pitting edema up to the knee) Knees: bilateral knee non-tender, bilateral knee normal inspection, bilateral knee normal range of motion Ankles: bilateral ankle non-tender, bilateral ankle normal inspection, bilat eral ankle normal range of motion Neurologic/Psychiatric: alert, normal mood/affect, oriented x 3 Skin: normal color, warm/dry Progress/Results/Core Measures Results/Orders Lab Results Laboratory Tests Test 06/10/20 17:55 Range/Units White Blood Count 9.4 4.3-11.0 10^3/uL Red Blood Count 3.89 L 4.35-5.85 10^6/uL Hemoglobin 9.7 L 11.5-16.0 G/DL Hematocrit 31 L 35-52 % Mean Corpuscular Volume 79 L 80-99 FL Mean Corpuscular Hemoglobin 25 25-34 PG Mean Corpuscular Hemoglobin Concent 32 32-36 G/DL Red Cell Distribution Width 19.2 H 10.0-14.5 % Platelet Count 319 130-400 10^3/uL Mean Platelet Volume 10.1 7.4-10.4 FL Neutrophils (%) (Auto) 50 42-75 % Lymphocytes (%) (Auto) 32 12-44 % Monocytes (%) (Auto) 15 H 0-12 % Eosinophils (%) (Auto) 3 0-10 % Basophils (%) (Auto) 0 0-10 % Neutrophils # (Auto) 4.7 1.8-7.8 X 10^3 Lymphocytes # (Auto) 3.0 1.0-4.0 X 10^3 Monocytes # (Auto) 1.5 H 0.0-1.0 X 10^3 Eosinophils # (Auto) 0.3 0.0-0.3 10^3/uL Basophils # (Auto) 0.0 0.0-0.1 10^3/uL Sodium Level 139 135-145 MMOL/L Potassium Level 4.2 3.6-5.0 MMOL/L Chloride Level 107 98-107 MMOL/L Carbon Dioxide Level 24 21-32 MMOL/L Anion Gap 8 5-14 MMOL/L Blood Urea Nitrogen 20 H 7-18 MG/DL Creatinine 1.00 0.60-1.30 MG/DL Estimat Glomerular Filtration Rate 53 BUN/Creatinine Ratio 20 Glucose Level 114 H 70-105 MG/DL Calcium Level 8.5 8.5-10.1 MG/DL Corrected Calcium 8.9 8.5-10.1 MG/DL Total Bilirubin 0.2 0.1-1.0 MG/DL Aspartate Amino Transf (AST/SGOT) 44 H 5-34 U/L Alanine Aminotransferase (ALT/SGPT) 36 0-55 U/L Alkaline Phosphatase 74 40-136 U/L B-Type Natriuretic Peptide 76.1 <100.0 PG/ML Total Protein 6.6 6.4-8.2 GM/DL Albumin 3.5 3.2-4.5 GM/DL My Orders Orders - SHERIN COPPOLA APRN Cbc With Automated Diff (06/10/20 16:45) BNP (06/10/20 16:45) Comprehensive Metabolic Panel (06/10/20 16:45) Ed Iv/Invasive Line Start (06/10/20 16:45) Chest 1 View, Ap/Pa Only (06/10/20 16:45) Vital Signs/I&O 06/10/20 16:37 Temp 36.7 Pulse 104 Resp 18 B/P (MAP) 112/78 (89) Pulse Ox 96 O2 Delivery Room Air Blood Pressure Mean: 89 Departure Impression Primary Impression: Pedal edema Disposition: 01 HOME, SELF-CARE Condition: Stable Departure-Patient Inst. Decision time for Depature: 18:31 Referrals: AUSTEN MCCORMICK MD (PCP/Family) Primary Care Physician Patient Instructions: Dependent Edema (DC) Add. Discharge Instructions: 1. Wear the compression stockings on during the day and off at night. Call primary care Saturday to make an appointment to be seen. Return to ER for any concerns. All discharge instructions reviewed with patient and/or family. Voiced understanding. SHERIN COPPOLA APRN Jun 10, 2020 16:50
--- NOTE | 2020-06-10 17:56 | Diagnostic Imaging Report ---
INDICATION: Dyspnea. FINDINGS: No focal infiltrate, failure, effusion, or pneumothorax. IMPRESSION: Negative. Dictated by: Dictated on workstation # [id number]
[2020-06-10 18:04] LABS: BASOPHILS % (AUTO) 0 % (0-10); EOSINOPHILS # (AUTO) 0.3 10^3/uL (0.0-0.3); EOSINOPHILS % (AUTO) 3 % (0-10); HEMATOCRIT 31 % (35-52); HEMOGLOBIN 9.7 G/DL (11.5-16.0); LYMPHOCYTES % (AUTO) 32 % (12-44); MEAN CORPUSCULAR HEMOGLOBIN 25 PG (25-34); MEAN CORPUSCULAR HGB CONC 32 G/DL (32-36); MEAN CORPUSCULAR VOLUME 79 FL (80-99); MEAN PLATELET VOLUME 10.1 FL (7.4-10.4); MONOCYTES # (AUTO) 1.5 X 10^3 (0.0-1.0); MONOCYTES % (AUTO) 15 % (0-12); NEUTROPHILS # (AUTO) 4.7 X 10^3 (1.8-7.8); NEUTROPHILS % (AUTO) 50 % (42-75); PLATELET COUNT 319 10^3/uL (130-400); RED CELL DISTRIBUTION WIDTH 19.2 % (10.0-14.5); WHITE BLOOD COUNT 9.4 10^3/uL (4.3-11.0)
[2020-06-10 18:14] LABS: ALBUMIN 3.5 GM/DL (3.2-4.5); POTASSIUM 4.2 MMOL/L (3.6-5.0)
[2020-06-10 18:15] LABS: CALCIUM 8.5 MG/DL (8.5-10.1)
[2020-06-10 18:16] LABS: TOTAL PROTEIN 6.6 GM/DL (6.4-8.2)
[2020-06-10 18:18] LABS: BILIRUBIN,TOTAL 0.2 MG/DL (0.1-1.0)
[2020-06-10] MEDS ORDERED: FUROSEMIDE 40 MG (LASIX) TAB PO ONE (18:45)
[2020-06-10 18:50] VITALS: BP 113/70
== END 2020-06-10 18:50 | disposition home or self-care (01) ==
LOC: EDUNIT# 16:16 → ER 16:17
DX: R60.0 Localized edema (principal); Z88.0 Allergy status to penicillin
CPT/HCPCS: 36415; 71045; 80053; 83880; 85025

== ENCOUNTER → 2020-06-20 | Outpatient (CLI) | payer MEDICARE, MEDICAID ==
[2020-06-17 23:06] LABS: BILIRUBIN,URINE NEGATIVE (NEGATIVE); CLARITY,URINE CLEAR; COLOR,URINE YELLOW; GLUCOSE, URINE (UA) NEGATIVE (NEGATIVE); KETONES,URINE NEGATIVE (NEGATIVE); LEUKOCYTE ESTERASE ,URINE NEGATIVE (NEGATIVE); NITRITE,URINE POSITIVE (NEGATIVE); PROTEIN,URINE TRACE (NEGATIVE)
[2020-06-17 23:17] LABS: BACTERIA,URINE LARGE /HPF; SQUAMOUS EPITHELIAL CELL,UR 0-2 /HPF; WBC,URINE 0-2 /HPF
== END ==
LOC: LABNPT 11:36
PROVIDERS: ATTEND Family Medicine
DX: N39.0 Urinary tract infection, site not specified (principal)
CPT/HCPCS: 81000; 87077; 87088; 87186

== ENCOUNTER → 2021-09-13 | Outpatient (CLI) | payer MEDICARE, MEDICAID ==
[~2021-09-13] MED LIST changes: +ALPR.25T; -ALPR0.254
== END ==
PROVIDERS: ATTEND Family Medicine
DX: U07.1 COVID-19 (principal)
CPT/HCPCS: 87636